=== PATIENT | female | born 1940 | race Caucasian/White ===

== ENCOUNTER → 2016-10-21 | Outpatient (REF) | payer MEDICARE ==
[~2016-10-21] MED LIST: ALEV220C2 PO; ASPI1TAB PO; ASPI81TA85 PO; COUM2.5T17 PO; LISI-542 PO; PERC5TAB12 PO; SIMV40TA2 PO; SYNT88TA2 PO; WARF-23 PO; fish oil PO; levothyroxine PO; lisinopril PO; vitamin d PO
[2016-10-21 14:41] LABS: MEAN CORPUSCULAR HEMOGLOBIN 30.7 pg (27.0-33.0); MEAN CORPUSCULAR HGB CONC 33.3 g/dl (32.0-36.5); MEAN CORPUSCULAR VOLUME 92.2 fl (80.0-96.0); RED CELL DISTRIBUTION WIDTH 13.1 % (11.5-14.5); WHITE BLOOD COUNT 6.3 K/mm3 (4.0-10.0)
[2016-10-21 15:04] LABS: EOSINOPHILS 1 % (0-5)
[2016-10-21 15:29] LABS: ERYTHROCYTE SEDIMENTATION RATE 27 mm/hr (0-30)
[2016-10-23 00:07] LABS: Lyme Disease IgG/IgM Antibodie <0.91 ISR (0.00-0.90); Lyme Disease IgM Ab Quantitati <0.80 index (0.00-0.79)
== END ==
LOC: M LABDRAW1 13:57
PROVIDERS: ATTEND Orthopaedic Surgery
DX: M48.06 Spinal stenosis, lumbar region (principal)

== ENCOUNTER → 2016-12-01 | Outpatient (REF) | payer MEDICARE ==
[2016-12-01 16:25] LABS: INR 1.03
== END ==
LOC: M LABDRAW1 12:02
PROVIDERS: ATTEND Physical Medicine & Rehabilitation
DX: M54.5 Low back pain (principal); Z79.01 Long term (current) use of anticoagulants

== ENCOUNTER 2017-01-14 11:40 | Day surgery (SDC) | payer MEDICARE ==
[~2017-01-14] VITALS: Ht 157.5 cm; Wt 77.1 kg
[~2017-01-14 11:40] MED LIST changes: +MIDAZOLAM INJ 2 MG/2 ML VIAL (J2250) As Ordered ONE; +fentaNYL 100 MCG/2 ML INJECTION (J3010) As Ordered ONE
[2017-01-14] MEDS ORDERED: PROPARACAINE 0.5% OPHTH SOL 15ML OS ONE (12:00)
[2017-01-14] MEDS ORDERED: OFLOXACIN 0.3 % (OCUFLOX) OPTH SOL 5ML OS ONE (12:00)
[2017-01-14] MEDS ORDERED: TROPICAMIDE 1% OPHTH SOLN 2ML OS ONE (12:00)
[2017-01-14] MEDS ORDERED: PHENYLEPHRINE 2.5% OPHTH SOL 2ML OS ONE (12:00)
[2017-01-14] MEDS ORDERED: LIDOCAINE 0.75%/EPINEPHRINE 0.025% IN BSS 1ML SYR INTRACAMERAL (OR ONLY) As Ordered ONE (13:01)
[2017-01-14] MEDS ORDERED: BALANCED SALT IRRIGATION SOLUTION 500ML BAG (FOR OR EYE MACHINE) As Ordered ONE (13:01)
[2017-01-14] MEDS ORDERED: ACETYLCHOLINE OPHTH SOLN 1% 2ML (MIOCHOL-E) As Ordered ONE (13:01)
[2017-01-14] MEDS ORDERED: CEFUROXIME 1MG/0.1ML INTRACAMERAL INJ As Ordered ONE (13:01)
[2017-01-14] MEDS ORDERED: DUOVISC (0.50ML VISCOAT/0.55ML PROVISC) OPHTH KIT As Ordered ONE (13:01)
[2017-01-14] MEDS ORDERED: POVIDONE-IODINE 5% OPHTH PREP SOL 30ML As Ordered ONE (13:01)
[2017-01-14] MEDS ORDERED: TETRACAINE 0.5% OPHTH SOLN 4ML As Ordered ONE (13:02)
[2017-01-14 13:50] VITALS: BP 157/72
--- NOTE | 2017-01-15 15:04 | RO ---
DATE OF PROCEDURE: 01/14/2017 PREOPERATIVE DIAGNOSIS: Visually significant nuclear sclerotic cataract left eye. POSTOPERATIVE DIAGNOSIS: Visually significant nuclear sclerotic cataract left eye. PROCEDURE: Cataract extraction with use of phacoemulsification and placement of intraocular lens, AU00T0, 15.0 diopters, left eye. SURGEON: Moe Abdalla DO JUTE BAG CLIPPER: ANESTHESIA: Local with monitored anesthesia care (MAC). COMPLICATIONS: None. POSTOPERATIVE CONDITION: Stable. INDICATION FOR SURGERY: Blurred vision left eye affecting patient's activities of daily living. DESCRIPTION OF PROCEDURE: The patient was seen in the preoperative area and properly identified. The correct operative eye was identified and marked. Attention was turned to that eye. The patient received topical antibiotics in the preoperative area. The patient then received topical dilating drops consisting of tropicamide and phenylephrine. The patient was then transferred to the operating room. The correct side was re-identified. The patient received topical anesthetics and antibiotics on the surface of the eye. The eye was prepped and draped in a sterile fashion. The upper and lower eyelids were isolated with Tegaderm tape, and the lids were held open with an adjustable speculum. Using a sideport blade, a paracentesis incision was made. Intraocular preservative-free lidocaine was then injected into the anterior chamber. Viscoelastic was then injected into the anterior chamber through the paracentesis. Using a 2.4 mm sharp-tipped keratome, the anterior chamber was entered via a temporal clear corneal incision. A continuous curvilinear capsulorrhexis was created with the aid of a 26-gauge cystotome and Utrata forceps. Hydrodissection was performed with balanced salt solution (BSS) on a blunt cannula until the nucleus was freely mobile. The crystalline lens was phacoemulsified and aspirated. Additional cohesive viscoelastic was placed into the capsular bag to deepen it. An AU00T0, 15.0 diopters lens was placed into the capsular bag and confirmed by visualizing the continuous curvilinear capsulorrhexis. Additional irrigation and aspiration was used to remove cortical material and remaining viscoelastic. The clear corneal incision was hydrated with BSS on a blunt cannula. The lens was well positioned. The incisions were then tested for leaks and found to be negative. The eye was then palpated for appropriate pressure and adjusted accordingly with BSS. The eyelid speculum was carefully removed. A shield was placed. The patient tolerated the procedure well and was discharged to the recovery unit in a stable condition. OLIMPIA
== END 2017-01-14 13:57 | disposition home or self-care (01) ==
LOC: M SDC 11:40
PROVIDERS: ATTEND Ophthalmology
DX: H25.12 Age-related nuclear cataract, left eye (principal); I10 Essential (primary) hypertension; E78.5 Hyperlipidemia, unspecified; E03.9 Hypothyroidism, unspecified; Z79.899 Other long term (current) drug therapy; Z79.82 Long term (current) use of aspirin; Z91.041 Radiographic dye allergy status
CPT/HCPCS: 66984; J2250; J3010; V2632

== ENCOUNTER → 2017-01-18 | Outpatient (REF) | payer MEDICARE ==
[~2017-01-18] MED LIST changes: -MIDAZOLAM INJ 2 MG/2 ML VIAL (J2250) As Ordered ONE; -fentaNYL 100 MCG/2 ML INJECTION (J3010) As Ordered ONE
[2017-01-18 13:11] LABS: BASO # 0.1 10^3/uL (0.0-0.2); BASO % 0.7 % (0.0-1.0); EOS # 0.1 10^3/uL (0.0-0.50); EOS % 1.1 % (0.0-3.0); IMMATURE GRANULOCYTE % 0.3 % (0-0); LYMPH # 1.7 10^3/uL (1.5-4.5); LYMPH % 23.9 % (24.0-44.0); MEAN CORPUSCULAR HEMOGLOBIN 29.6 pg (27.0-33.0); MEAN CORPUSCULAR HGB CONC 32.3 g/dl (32.0-36.5); MEAN CORPUSCULAR VOLUME 91.6 fl (80.0-96.0); MONO # 0.4 10^3/uL (0.0-0.8); NEUTROPHILS # 4.9 10^3/uL (1.8-7.7); PLATELET COUNT, AUTOMATED 248 10^3/uL (150-450); RED CELL DISTRIBUTION WIDTH 13.5 % (11.5-14.5)
[2017-01-18 13:26] LABS: ALBUMIN 3.8 GM/DL (3.2-5.2); ALBUMIN/GLOBULIN RATIO 1.15 (1.00-1.93); ALKALINE PHOSPHATASE 151 U/L (45-117); ALT/SGPT 29 U/L (12-78); ANION GAP 7 MEQ/L (8-16); AST/SGOT 14 U/L (15-37); BILIRUBIN,TOTAL 0.5 MG/DL (0.2-1.0); BLOOD UREA NITROGEN 12 MG/DL (7-18); CALCIUM LEVEL 9.1 MG/DL (8.8-10.2); CARBON DIOXIDE LEVEL 27 MEQ/L (21-32); CHLORIDE LEVEL 108 MEQ/L (98-107); CREATININE FOR GFR 0.62 MG/DL (0.55-1.02); GLOMERULAR FILTRATION RATE > 60.0 (>39); GLUCOSE, FASTING 96 MG/DL (83-110); POTASSIUM SERUM 4.3 MEQ/L (3.5-5.1); SODIUM LEVEL 142 MEQ/L (136-145); TOTAL PROTEIN 7.1 GM/DL (6.4-8.2)
[2017-01-18 14:21] LABS: ERYTHROCYTE SEDIMENTATION RATE 29 mm/hr (0-30)
[2017-01-21 00:06] LABS: Lyme Disease IgG/IgM Antibodie <0.91 ISR (0.00-0.90); Lyme Disease IgM Ab Quantitati <0.80 index (0.00-0.79)
== END ==
LOC: M LABDRAW1 11:15
PROVIDERS: ATTEND Internal Medicine Rheumatology
DX: M35.9 Systemic involvement of connective tissue, unspecified (principal); Z79.899 Other long term (current) drug therapy

== ENCOUNTER 2017-01-28 07:15 | Day surgery (SDC) | payer MEDICARE ==
[~2017-01-28] VITALS: Ht 157.5 cm; Wt 82.9 kg
[~2017-01-28 07:15] MED LIST changes: +OFLOXACIN 0.3 % (OCUFLOX) OPTH SOL 5ML OD ONE; +PHENYLEPHRINE 2.5% OPHTH SOL 2ML OD ONE; +PROPARACAINE 0.5% OPHTH SOL 15ML OD ONE; +TROPICAMIDE 1% OPHTH SOLN 2ML OD ONE
[2017-01-28] MEDS ORDERED: LR 1,000 ML IV ONE (07:45)
[2017-01-28] MEDS ORDERED: fentaNYL 100 MCG/2 ML INJECTION (J3010) As Ordered ONE (08:19)
[2017-01-28] MEDS ORDERED: MIDAZOLAM INJ 2 MG/2 ML VIAL (J2250) As Ordered ONE (08:19)
[2017-01-28] MEDS ORDERED: ACETYLCHOLINE OPHTH SOLN 1% 2ML (MIOCHOL-E) As Ordered ONE (08:35)
[2017-01-28] MEDS ORDERED: POVIDONE-IODINE 5% OPHTH PREP SOL 30ML As Ordered ONE (08:35)
[2017-01-28] MEDS ORDERED: CEFUROXIME 1MG/0.1ML INTRACAMERAL INJ As Ordered ONE (08:35)
[2017-01-28] MEDS ORDERED: BALANCED SALT IRRIGATION SOLUTION 500ML BAG (FOR OR EYE MACHINE) As Ordered ONE (08:35)
[2017-01-28] MEDS ORDERED: DUOVISC (0.50ML VISCOAT/0.55ML PROVISC) OPHTH KIT As Ordered ONE (08:35)
[2017-01-28] MEDS ORDERED: LIDOCAINE 0.75%/EPINEPHRINE 0.025% IN BSS 1ML SYR INTRACAMERAL (OR ONLY) As Ordered ONE (08:35)
[2017-01-28 09:20] VITALS: BP 194/86
--- NOTE | 2017-02-01 19:19 | RO ---
DATE OF PROCEDURE: 01/28/2017 PREOPERATIVE DIAGNOSIS: Visually significant nuclear sclerotic cataract right eye. POSTOPERATIVE DIAGNOSIS: Visually significant nuclear sclerotic cataract right eye. PROCEDURE: Cataract extraction with use of phacoemulsification and placement of intraocular lens, AU00T0 13.5, right eye. SURGEON: Moe Abdalla DO B[employer]ING [employer] FILLING MACHINE OPERATOR: ANESTHESIA: Local with monitored anesthesia care (MAC). COMPLICATIONS: None. POSTOPERATIVE CONDITION: Stable. INDICATION FOR SURGERY: Blurred vision right eye affecting patient's activities of daily living. DESCRIPTION OF PROCEDURE: The patient was seen in the preoperative area and properly identified. The correct operative eye was identified and marked. Attention was turned to that eye. The patient received topical antibiotics in the preoperative area. The patient then received topical dilating drops consisting of tropicamide and phenylephrine. The patient was then transferred to the operating room. The correct side was re-identified. The patient received topical anesthetics and antibiotics on the surface of the eye. The eye was prepped and draped in a sterile fashion. The upper and lower eyelids were isolated with Tegaderm tape, and the lids were held open with an adjustable speculum. Using a sideport blade, a paracentesis incision was made. Intraocular preservative-free lidocaine was then injected into the anterior chamber. Viscoelastic was then injected into the anterior chamber through the paracentesis. Using a 2.4 mm sharp-tipped keratome, the anterior chamber was entered via a temporal clear corneal incision. A continuous curvilinear capsulorrhexis was created with the aid of a 26-gauge cystotome and Utrata forceps. Hydrodissection was performed with balanced salt solution (BSS) on a blunt cannula until the nucleus was freely mobile. The crystalline lens was phacoemulsified and aspirated. Additional cohesive viscoelastic was placed into the capsular bag to deepen it. An AU00T0 13.5 lens was placed into the capsular bag and confirmed by visualizing the continuous curvilinear capsulorrhexis. Additional irrigation and aspiration was used to remove cortical material and remaining viscoelastic. The clear corneal incision was hydrated with BSS on a blunt cannula. The lens was well positioned. The incisions were then tested for leaks and found to be negative. The eye was then palpated for appropriate pressure and adjusted accordingly with BSS. The eyelid speculum was carefully removed. A shield was placed. The patient tolerated the procedure well and was discharged to the recovery unit in a stable condition. [facility] FACILITYVeronica
== END 2017-01-28 09:30 | disposition home or self-care (01) ==
LOC: M SDC 07:15
PROVIDERS: ATTEND Ophthalmology
DX: H25.11 Age-related nuclear cataract, right eye (principal); I10 Essential (primary) hypertension; E78.00 Pure hypercholesterolemia, unspecified; E03.9 Hypothyroidism, unspecified; R29.898 Other symptoms and signs involving the musculoskeletal system; M17.11 Unilateral primary osteoarthritis, right knee; Z91.041 Radiographic dye allergy status; Z79.899 Other long term (current) drug therapy; Z79.82 Long term (current) use of aspirin; Z96.651 Presence of right artificial knee joint; Z90.710 Acquired absence of both cervix and uterus
CPT/HCPCS: 66984; J2250; J3010; V2632

== ENCOUNTER → 2018-11-10 | Outpatient (CLI) | payer MEDICARE ==
[~2018-11-10] MED LIST changes: -ASPI1TAB PO; +ASPI81TA26 PO; -OFLOXACIN 0.3 % (OCUFLOX) OPTH SOL 5ML OD ONE; -PHENYLEPHRINE 2.5% OPHTH SOL 2ML OD ONE; -PROPARACAINE 0.5% OPHTH SOL 15ML OD ONE; -TROPICAMIDE 1% OPHTH SOLN 2ML OD ONE
--- NOTE | 2018-11-10 15:22 | REPMRS ---
Patient History The patient states she has not had a clinical breast exam in over a year. Patient is postmenopausal. Family history of breast cancer at age 50 or over in sister. No Hormone Replacement Therapy 3D TOMOSYNTHESIS WAS PERFORMED. [facility] lifetime risk for breast cancer is 4.0%. Digital Woman Screen Mammo: November 10, 2018 - Exam #: [id number] Bilateral CC and MLO view(s) were taken. Technologist: Tania Osuna, Technologist Prior study comparison: November 06, 2013, digital woman screen mammo performed at [facility]. January 09, 2011, bilateral mammogram, performed at [facility]. FINDINGS: The breast tissue is heterogeneously dense. This may lower the sensitivity of mammography. There has been no change in the appearance of the mammogram from the prior studies. There is a moderate amount of residual fibroglandular tissue which is fairly symmetric. There is no interval development of dominant mass, areas of architectural distortion, or clustered microcalcification typical of malignancy. Assessment: BI-RADS/ACR category 1 mammogram. Negative Mammogram. Recommendation Routine screening mammogram in 1 year (for women over age 40). This mammogram was interpreted with the aid of an FDA-approved computer-aided dectection system. Electronically Signed By: Alejo Cruz MD 11/10/18 [id number]
--- NOTE | 2018-11-18 11:46 | DEXA ---
AP SPINE L1 - L4 1.399 1.6 3.4 LT FEMUR TOTAL 0.878 -1.0 0.8 LT NECK 0.798 -1.7 0.3 RT FEMUR TOTAL 0.883 -1.0 0.8 RT NECK 0.778 -1.9 0.1 TOTAL BODY TOTAL OTHER COMMENTS: Normal bone densitometry of the spine. There is low bone density of the hips. The density of the spine has decreased 1.6% since 11/06/2013. The density of the left hip has decreased 3.1% since 11/06/2013. The density of the right hip has decreased 5.9% since 11/06/2013. FOLLOW-UP: Recommendation for the next bone density exam: 2 years. OLIMP[facility]
== END ==
LOC: M WHC 13:28
PROVIDERS: ATTEND Nurse Practitioner
DX: Z12.31 Encounter for screening mammogram for malignant neoplasm of breast (principal); M84.80 Other disorders of continuity of bone, unspecified site; Z78.0 Asymptomatic menopausal state; Z80.3 Family history of malignant neoplasm of breast

== ENCOUNTER → 2022-10-30 | Outpatient (REF) | payer MEDICARE ==
[~2022-10-30] MED LIST changes: -ASPI81TA85 PO; +ASPI81TA86 PO; -LISI-542 PO; +LISI5TAB11 PO; -SIMV40TA2 PO; +SIMV40TA20 PO
[2022-10-30 13:39] LABS: FOLATE > 24.0 NG/ML (>5.4)
[2022-10-30 13:42] LABS: VITAMIN B12 LEVEL 396 PG/ML (211-911)
== END ==
LOC: M LAB REF 10:12
PROVIDERS: ATTEND Nurse Practitioner Family
DX: N39.0 Urinary tract infection, site not specified (principal); D50.9 Iron deficiency anemia, unspecified

== ENCOUNTER 2024-10-22 00:49 | Inpatient (IN) | payer MEDICARE ==
[~2024-10-22] VITALS: Ht 162.6 cm; Wt 68.2 kg
[2024-10-22 01:02] VITALS: TEMP 97.7
[2024-10-22 02:00] LABS: KETONE, URINE AUTO RFX NEGATIVE (NEGATIVE); LEUKOCYTE ESTERASE UR AUTO RFX NEGATIVE (NEGATIVE); NITRITE, URINE AUTO RFX NEGATIVE (NEGATIVE); RBC, URINE AUTO RFX 1 /HPF (0-3); SQUAM EPITHELIAL CELL UR AURFX 0 /HPF (0-6); WBC, URINE AUTO RFX 1 /HPF (0-3)
[2024-10-22 03:30] LABS: BASO # 0.0 10^3/uL (0.0-0.2); BASO % 0.4 % (0.0-1.0); EOS # 0.1 10^3/uL (0.0-0.5); EOS % 1.2 % (0.0-3.0); LYMPH # 1.4 10^3/uL (1.5-5.0); LYMPH % 18.7 % (24.0-44.0); MONO # 0.5 10^3/uL (0.0-0.8); MONO % 6.8 % (2.0-8.0); NEUTROPHILS # 5.3 10^3/uL (1.5-8.5); NEUTROPHILS % 72.6 % (36.0-66.0); PLATELET COUNT, AUTOMATED 186 10^3/uL (150-450)
[2024-10-22 03:58] LABS: CK-MB VALUE MASS 3.4 NG/ML (<3.6)
[2024-10-22 04:00] LABS: ALT/SGPT 23.0 U/L (7.0-40); AST/SGOT 25.0 U/L (<34); CALCIUM LEVEL 8.8 MG/DL (8.3-10.6); CARBON DIOXIDE LEVEL 26.0 MMOL/L (20-31); CHLORIDE LEVEL 107.0 MMOL/L (98-107); CPK CREATINE PHOSPHOKINASE 161.0 U/L (34-145); CREATININE FOR GFR 1.02 MG/DL (0.55-1.30); GLOMERULAR FILTRATION RATE 54.9 (>32); MB/CK RELATIVE INDEX 2.11 (< OR =4); POTASSIUM SERUM 3.9 MMOL/L (3.5-5.1); SODIUM LEVEL 144.0 MMOL/L (136-145)
[2024-10-22 04:30] VITALS: BP 159/72
[2024-10-22] MEDS ORDERED: ACETAMINOPHEN 325 MG TAB PO PRN (06:00)
[2024-10-22] MEDS ORDERED: ACETAMINOPHEN 650 MG SUPP PR PRN (06:00)
[2024-10-22] MEDS ORDERED: LORazepam 1 MG TAB PO PRN (06:00)
[2024-10-22] MEDS ORDERED: ACETAMINOPHEN 500 MG TAB PO PRN (06:00)
[2024-10-22 06:46] VITALS: O2SAT 99
[2024-10-22] MEDS ORDERED: HALOPERIDOL 5 MG TAB PO PRN (10:45)
[2024-10-22] MEDS ORDERED: ONDANSETRON 4MG ORAL DISINTEGRATING TAB PO PRN (10:45)
[2024-10-22] MEDS ORDERED: SCOPOLAMINE 1MG TRANSDERMAL PATCH TOP PRN (10:45)
[2024-10-22] MEDS: MORPHINE 10 MG/0.5 ML ORAL CONCENTRATE SOLUTION U/D SL PRN (13:46)
[2024-10-22] MEDS: LORazepam 1 MG TAB PO PRN (14:05)
[2024-10-23] MEDS: LEVOTHYROXINE 50 MCG TABLET (0.05 MG) PO SCH (14:36)
[2024-10-23] MEDS: MORPHINE 10 MG/0.5 ML ORAL CONCENTRATE SOLUTION U/D SL SCH (21:38)
[2024-10-23] MEDS: LORazepam 1 MG TAB PO SCH (21:38)
[2024-10-25] MEDS: MORPHINE 10 MG/0.5 ML ORAL CONCENTRATE SOLUTION U/D SL PRN (11:38)
[2024-10-26] MEDS: MORPHINE 10 MG/0.5 ML ORAL CONCENTRATE SOLUTION U/D SL SCH (13:42)
[2024-10-28] MEDS: MORPHINE 10 MG/0.5 ML ORAL CONCENTRATE SOLUTION U/D SL PRN (10:53)
[2024-10-28] MEDS: HYOSCYAMINE SULFATE 0.125 MG SUBL TABLET PO PRN (11:31)
[2024-10-28] MEDS ORDERED: MORPHINE 10 MG/0.5 ML ORAL CONCENTRATE SOLUTION U/D SL PRN (11:35)
[2024-10-28] MEDS: MORPHINE 10 MG/0.5 ML ORAL CONCENTRATE SOLUTION U/D SL SCH (13:36)
[2024-10-29] MEDS ORDERED: SCOPOLAMINE 1MG TRANSDERMAL PATCH TOP PRN (03:05)
[2024-10-29] MEDS ORDERED: ATROPINE SULFATE 1% OPHTH SOLN 2 ML BTL SL PRN (03:05)
== END 2024-10-29 18:59 | disposition expired | DRG 951 ==
LOC: M ED 00:49 → M ED INP 05:56 → M MSPAV 09:18
PROVIDERS: ADMIT Family Medicine; ATTEND Internal Medicine
DX: Z51.5 Encounter for palliative care (principal); F03.911 Unspecified dementia, unspecified severity, with agitation; Z66 Do not resuscitate; I10 Essential (primary) hypertension; E03.9 Hypothyroidism, unspecified; E78.5 Hyperlipidemia, unspecified; I48.91 Unspecified atrial fibrillation; R32 Unspecified urinary incontinence; F41.9 Anxiety disorder, unspecified; Z74.1 Need for assistance with personal care; R52 Pain, unspecified; R57.1 Hypovolemic shock; R26.2 Difficulty in walking, not elsewhere classified; Z79.82 Long term (current) use of aspirin; Z79.890 Hormone replacement therapy; Z79.899 Other long term (current) drug therapy; Z91.041 Radiographic dye allergy status; Z91.048 Other nonmedicinal substance allergy status; Z90.49 Acquired absence of other specified parts of digestive tract